=== PATIENT | male | born 1985 ===

== ENCOUNTER 2018-05-28 04:41 | Emergency (ER) | payer SELFPAY ==
[2018-05-28 04:50] VITALS: BP 124/78; RESP 18; TEMP 98.4
[2018-05-28] MEDS ORDERED: Lidocaine 2% w Epi 1:100,000 Inj IJ ONE (05:01)
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
[2018-05-28 07:20] VITALS: PULSE 89
[2018-05-28 07:21] VITALS: O2SAT 98
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
== END 2018-05-28 07:20 | disposition home or self-care (01) ==
LOC: H.ER 04:41
DX: S09.90XA Unspecified injury of head, initial encounter (principal); S01.21XA Laceration without foreign body of nose, initial encounter; Y04.0XXA Assault by unarmed brawl or fight, initial encounter; Y92.89 Other specified places as the place of occurrence of the external cause